=== PATIENT | male | born 1955 | race Caucasian/White ===

== ENCOUNTER 2017-07-08 15:14 | Outpatient (CLI) | payer OTHER ==
[2017-07-08 18:51] LABS: BUN - BLOOD UREA NITROGEN 22 mg/dL (6-20); CALCIUM 8.7 mg/dL (8.5-10.3); CARBON DIOXIDE - CO2 26 mmol/L (21-32); CHLORIDE 103 mmol/L (101-111); CHOLESTEROL 233 mg/dL; CREATININE 1.3 mg/dL (0.6-1.2); GFR - MDRD 57 (>89); GLUCOSE 121 mg/dL (70-100); HDL CHOLESTEROL 39 mg/dL; LDL/HDL RATIO 3.7 (<3.6); POTASSIUM 3.8 mmol/L (3.5-5.0); SODIUM 136 mmol/L (135-145); TRIGLYCERIDES 249 mg/dL; VLDL CHOLESTEROL 50 mg/dL
== END 2017-07-08 15:15 | disposition home or self-care (01) ==
LOC: LAB.F 15:14
PROVIDERS: ATTEND Internal Medicine
DX: I10 Essential (primary) hypertension (principal)
CPT/HCPCS: 36415; 80048; 80061

== ENCOUNTER 2018-05-21 07:37 | Outpatient (CLI) | payer MEDICAID ==
[2018-05-21 11:23] LABS: BUN - BLOOD UREA NITROGEN 18 mg/dL (6-20); CALCIUM 8.8 mg/dL (8.5-10.3); CARBON DIOXIDE - CO2 26 mmol/L (21-32); CHLORIDE 102 mmol/L (101-111); CHOL/HDL RATIO 7.1 (<5.0); CHOLESTEROL 235 mg/dL; CREATININE 1.1 mg/dL (0.6-1.2); GFR - MDRD 68 (>89); GLUCOSE 99 mg/dL (70-100); HDL CHOLESTEROL 33 mg/dL; LDL CHOLESTEROL,CALCULATED 177 mg/dL; LDL/HDL RATIO 5.4 (<3.6); SODIUM 137 mmol/L (135-145); VLDL CHOLESTEROL 25 mg/dL
== END 2018-05-21 07:38 | disposition home or self-care (01) ==
LOC: LAB.F 07:37
PROVIDERS: ATTEND Internal Medicine
DX: I10 Essential (primary) hypertension (principal); E78.5 Hyperlipidemia, unspecified
CPT/HCPCS: 36415; 80048; 80061; 83721

== ENCOUNTER 2018-06-15 08:34 | Day surgery (SDC) | payer MEDICAID ==
[2018-06-15] MEDS ORDERED: ceFAZolin 2 GM/50 ML 2 GM/50 ML BAG IV ONE (08:53)
[2018-06-15] MEDS ORDERED: LACTATED RINGERS 1,000 ML IV ONE ×2 (09:25→12:31)
--- NOTE | 2018-06-15 09:38 | ANESTHESIA ---
Pre-Anesthesia VS, & Labs - Diagnosis left inguinal hernia - Procedure left open inguinal hernia repair with mesh Vital Signs: Temp Pulse Resp BP Pulse Ox 36.8 C 84 16 145/97 H 97 06/15/18 08:50 06/15/18 08:50 06/15/18 08:50 06/15/18 08:50 06/15/18 08:50 Height 5 ft 8 in Weight (kg) 78.6 kg - NPO >8 hours - Lab Results Lab results reviewed: Yes Home Medications and Allergies Home Medications: Ambulatory Orders Medication Instructions Recorded Confirmed Simvastatin 20 mg PO QPM 06/12/18 06/15/18 amLODIPine [Norvasc] 10 mg PO DAILY 06/12/18 06/15/18 Simvastatin 20 mg PO QPM 06/12/18 amLODIPine [Norvasc] 10 mg PO DAILY 06/12/18 Allergies/Adverse Reactions: Allergies Allergy/AdvReac Type Severity Reaction Status Date / Time crab Allergy Anaphylaxis Verified 06/12/18 12:38 morphine AdvReac Nausea Verified 06/12/18 12:38 Anes History & Medical History - Anesthetic History Anesthesia Complications: reports: No previous complications Family history of Anesthesia Complications: Denies Family history of Malignant Hyperthermia: Denies - Medical History Cardiovascular: reports: Hypertension, High cholesterol Pulmonary: reports: None Gastrointestinal: reports: GERD Urinary: reports: None Musculoskeletal: reports: Gout Endocrine/Autoimmune: reports: None Skin: reports: None - Surgical History General: Appendectomy Eyes Ears Nose Throat (EENT): Tonsil/Adenoidectomy Exam Dental: Other (caps) Mouth Openin Fingerbreadth Neck Mobility: Normal Mallampati classification: II Thyromental Distance: greater than 6 cm Respiratory: Lungs clear, Normal breath sounds, No respiratory distress, No accessory muscle use Cardiovascular: Regular rate, Normal S1, Normal S2, No murmurs Mental/Cognitive Status: Alert/Oriented X3, Normal for patient Cognitive Status: Within normal limits Plan Anesthesia Type: General Consent for Procedure(s) Verified and Reviewed: Yes Code Status: Attempt Resuscitation ASA classification: 2-Mild systemic disease Is this case an emergency?: No
[2018-06-15] MEDS ORDERED: BUPIVACAINE 0.5%-EPI 1:200000 PF 30 ML VIAL ONE (09:52)
[2018-06-15] MEDS ORDERED: LIDOCAINE 1% 50 ML MDV ONE (09:52)
[2018-06-15] MEDS ORDERED: ceFAZolin 1 GM VIAL ONE (09:54)
[2018-06-15] MEDS ORDERED: LIDOCAINE-MPF 2% 5 ML VIAL IM ONE (11:15)
[2018-06-15] MEDS ORDERED: KETOROLAC 30 MG/ML VIAL IVP ONE (11:15)
[2018-06-15] MEDS ORDERED: PROPOFOL 200 MG/20 ML VIAL IVP ONE (11:15)
[2018-06-15] MEDS ORDERED: fentaNYL 100 MCG/2 ML VIAL IVP ONE (11:15)
[2018-06-15] MEDS ORDERED: DEXAMETHASONE 4 MG/ML VIAL IVP ONE (11:15)
[2018-06-15] MEDS ORDERED: ONDANSETRON 4 MG/2 ML VIAL IVP ONE (11:15)
[2018-06-15] MEDS ORDERED: MIDAZOLAM 2 MG/2 ML VIAL IVP ONE (11:15)
[2018-06-15] MEDS ORDERED: BUPIVACAINE 0.5%-EPI 1:200000 PF 30 ML VIAL SUBQ ONE ×2 (11:41)
[2018-06-15] MEDS ORDERED: oxyCODONE 5 MG TABLET PO PRN (12:41)
[2018-06-15] MEDS ORDERED: ONDANSETRON 4 MG/2 ML VIAL IVP PRN (12:41)
[2018-06-15] MEDS ORDERED: ACETAMINOPHEN 325 MG TABLET PO PRN (12:41)
[2018-06-15] MEDS ORDERED: IBUPROFEN 600 MG TABLET PO PRN (12:41)
[2018-06-15] MEDS ORDERED: oxyCODONE 5 MG TABLET ONE (13:23)
[2018-06-15 14:16] VITALS: BP 132/79
--- NOTE | 2018-06-15 22:43 | OPERATIVE REPORT ---
DATE OF SERVICE: 06/15/2018 Physician: Nirav Arteaga MD PREOPERATIVE DIAGNOSIS: Symptomatic left inguinal hernia. POSTOPERATIVE DIAGNOSIS: Symptomatic left inguinal hernia, direct. PROCEDURE PERFORMED: Open repair of same with Bard soft tissue patch. ANESTHESIA: General laryngeal mask anesthesia plus local by Osman Wellington CRNA. SURGEON: Nirav Arteaga MD. ESTIMATED BLOOD LOSS: Minimal. COMPLICATIONS: None. DRAINS: None. FINDINGS: A small to moderate sized direct left inguinal hernia was noted. There was no evidence of indirect or femoral hernia. INDICATIONS FOR PROCEDURE: Patient is a 62-year-old gentleman with a recent onset of a painful reducible left groin bulge. Examination revealed a left inguinal hernia. He was advised to undergo repair. TECHNIQUE: After informed consent, the patient was taken to the operating room and placed under general anesthesia. Preoperative preparation included application of sequential calf compression boots and administration of 2 grams cefazolin intravenously within an hour of the incision, his left groin had been clipped and was prepared with iodoform solution, following which a left groin block was instituted using a 50:50 combination of 0.5% Marcaine plain and 1% lidocaine with epinephrine. A total of 50 mL of the mixture was used. The patient's left groin was re-prepared with ChloraPrep solution and draped in the usual sterile fashion. A transverse incision was made in the skin lines of the left groin beginning above the pubic tubercle and extending laterally approximately 4-5 cm in length. Hemostasis achieved with electrocautery and 2-0 Vicryl tie. Incision was carried down through subcutaneous tissues until the external oblique aponeurosis was identified and was incised along the lines of its fibers, in such a manner as to open the internal ring and exposed the internal ring. The spermatic cord mobilized and encircled with a Christiano drain. The lingual nerve was identified and was divided to avoid neuralgia from entrapment or traction injury. The spermatic cord was dissected and no indirect sac was identified. A direct sac was identified and dissected free from surrounding cord structures. The direct sac was reduced and the defect of the inguinal floor reapproximated with two 3-0 silk sutures. Hemostasis was assured. The wound was irrigated with antibiotic solution containing a gram of cefazolin per liter, following which the Bard expanded polypropylene precut slotted inguinal patch was soaked in antibiotic solution and placed over the inguinal floor where it secured in place circumferentially with 3-0 Prolene sutures. Care was taken to avoid excessive tightening of the patch around the cord at the level of the internal ring. After hemostasis was assured and the wound was again irrigated with antibiotic solution. The wound closure was accomplished in layers with continuous 2-0 Vicryl to reapproximate the external oblique aponeurosis overlying the cord, followed by 3-0 Vicryl for the Atul fascia and 4-0 Monocryl subcuticular skin closure, followed by Dermabond. Anesthesia was terminated and patient transferred to the recovery room in satisfactory condition. Sponge and needle counts were correct x2. No drains were used. TD: 06/15/2018 12:54 SALUD
== END 2018-06-15 08:35 | disposition home or self-care (01) ==
LOC: SDS 08:34
PROVIDERS: ATTEND Internal Medicine Gastroenterology
PROC: 0YU60JZ Supplement Left Inguinal Region with Synthetic Substitute, Open Approach (ICD-10-PCS; principal; 2018-06-15 09:45)
DX: K40.90 Unilateral inguinal hernia, without obstruction or gangrene, not specified as recurrent (principal); R39.15 Urgency of urination; I10 Essential (primary) hypertension; E78.5 Hyperlipidemia, unspecified; Z79.899 Other long term (current) drug therapy; Z86.010 Personal history of colon polyps; Z83.79 Family history of other diseases of the digestive system; Z87.891 Personal history of nicotine dependence
CPT/HCPCS: 49505; A9270; C1781; J0690; J7120

== ENCOUNTER 2021-03-16 07:16 | Outpatient (CLI) | payer OTHER ==
[2021-03-16 14:42] LABS: BASOPHILS # (AUTO) 0.1 10^3/uL (0.0-0.1); BASOPHILS % (AUTO) 0.7 %; EOSINOPHILS # (AUTO) 0.3 10^3/uL (0.0-0.7); EOSINOPHILS % (AUTO) 3.8 %; HCT - HEMATOCRIT 44.1 % (42.0-52.0); HGB - HEMOGLOBIN 14.8 g/dL (14.0-18.0); LYMPHOCYTES # (AUTO) 2.3 10^3/uL (1.5-3.5); LYMPHOCYTES % (AUTO) 33.1 %; MEAN CORPUSCULAR HEMOGLOBIN 31.3 pg (27.0-31.0); MEAN CORPUSCULAR HGB CONC 33.6 g/dL (32.0-36.0); MEAN CORPUSCULAR VOLUME 93.2 fL (80.0-94.0); MONOCYTES # (AUTO) 0.6 10^3/uL (0.0-1.0); MONOCYTES % (AUTO) 9.3 %; NEUTROPHILS # (AUTO) 3.6 10^3/uL (1.5-6.6); NEUTROPHILS % (AUTO) 52.4 %; PLT - PLATELET COUNT 319 10^3/uL (130-450); RED BLOOD COUNT 4.73 10^6/uL (4.70-6.10); WHITE BLOOD COUNT 6.8 x10^3/uL (4.8-10.8)
[2021-03-16 15:51] LABS: ALBUMIN 4.4 g/dL (3.2-5.5); ALBUMIN/GLOBULIN RATIO 1.6 (1.0-2.2); ALKALINE PHOSPHATASE 64 IU/L (42-121); ALT ALANINE AMINOTRANSFERASE 83 IU/L (10-60); AST ASPARTATE AMINOTRANSFERASE 58 IU/L (10-42); BILIRUBIN,TOTAL 0.9 mg/dL (0.2-1.0); BUN - BLOOD UREA NITROGEN 18 mg/dL (6-20); CALCIUM 9.3 mg/dL (8.5-10.3); CARBON DIOXIDE - CO2 24 mmol/L (21-32); CHLORIDE 103 mmol/L (101-111); CHOL/HDL RATIO 6.9 (<5.0); CHOLESTEROL 277 mg/dL; GFR - MDRD 75 (>89); GLUCOSE 100 mg/dL (70-100); HDL CHOLESTEROL 40 mg/dL; LDL CHOLESTEROL,CALCULATED 211 mg/dL; LDL/HDL RATIO 5.3 (<3.6); SODIUM 139 mmol/L (135-145); TOTAL PROTEIN 7.1 g/dL (6.7-8.2); TRIGLYCERIDES 132 mg/dL; VLDL CHOLESTEROL 26 mg/dL
== END 2021-03-16 07:17 | disposition home or self-care (01) ==
LOC: LAB.S 07:16
PROVIDERS: ATTEND Internal Medicine
DX: I10 Essential (primary) hypertension (principal); Z12.5 Encounter for screening for malignant neoplasm of prostate
CPT/HCPCS: 36415; 80053; 80061; 83721; 84153; 85025

== ENCOUNTER 2021-07-17 11:11 | Day surgery (SDC) | payer OTHER ==
[2021-07-17] MEDS ORDERED: LACTATED RINGERS 1,000 ML IV ONE ×2 (11:31→13:08)
--- NOTE | 2021-07-17 12:11 | ANESTHESIA ---
Pre-Anesthesia VS, & Labs - Diagnosis history of polyps - Procedure colonoscopy Vital Signs: Temp Pulse Resp BP Pulse Ox 36.8 C 82 16 147/88 H 99 07/17/21 11:39 07/17/21 11:39 07/17/21 11:39 07/17/21 11:39 07/17/21 11:39 Height: 5 ft 9 in Weight (kg): 84.2 kg Body Mass Index: 27.3 BMI Classification: Overweight - NPO >8 hours Home Medications and Allergies amLODIPine [Norvasc] 10 mg PO DAILY 06/12/18 Allergies/Adverse Reactions: Allergies Allergy/AdvReac Type Severity Reaction Status Date / Time crab Allergy Anaphylaxis Verified 06/12/18 12:38 morphine AdvReac Nausea Verified 06/12/18 12:38 Anes History & Medical History - Anesthetic History Anesthesia Complications: reports: No previous complications - Medical History Cardiovascular: reports: Hypertension, High cholesterol Pulmonary: reports: None Gastrointestinal: reports: GERD, Colon polyps Urinary: reports: None Musculoskeletal: reports: Gout Endocrine/Autoimmune: reports: None Skin: reports: None - Surgical History General: reports: Appendectomy, Other Eyes Ears Nose Throat (EENT): reports: Tonsil/Adenoidectomy Exam General: Alert Dental: WNL Mouth Opening: Greater than 4 Fingerbreadths Mallampati classification: II Thyromental Distance: greater than 6 cm Respiratory: Lungs clear Cardiovascular: Regular rate Plan Anesthesia Type: Total IV Consent for Procedure(s) Verified and Reviewed: Yes Code Status: Attempt Resuscitation ASA classification: 2-Mild systemic disease Is this case an emergency?: No
[2021-07-17] MEDS ORDERED: LIDOCAINE-MPF 2% 5 ML VIAL ONE (12:32)
[2021-07-17] MEDS ORDERED: PROPOFOL 500 MG/50 ML 500 MG/50 ML VIAL ONE (12:32)
[2021-07-17 13:30] VITALS: BP 126/87
--- NOTE | 2021-07-17 13:40 | ANESTHESIA POST OP EVALUATION ---
Anesthesia Post Eval - Post Anesthesia Eval Vitals: Last Vital Signs Temp 36.7 C 07/17/21 13:28 Pulse 71 07/17/21 13:28 Resp 16 07/17/21 13:28 BP 126/87 H 07/17/21 13:28 Pulse Ox 99 07/17/21 13:28 CV Function Including HR & BP: Stable Pain Control: Satisfactory Nausea & Vomiting: Negative Mental Status: Baseline Respiratory Status: Airway Patent Hydration Status: Satisfactory Anesthesia Complications: None
== END 2021-07-17 11:12 | disposition home or self-care (01) ==
LOC: SDS 11:11
PROVIDERS: ATTEND Surgery
PROC: 0DBN8ZZ Excision of Sigmoid Colon, Via Natural or Artificial Opening Endoscopic (ICD-10-PCS; 2021-07-17)
PROC: 0DBM8ZZ Excision of Descending Colon, Via Natural or Artificial Opening Endoscopic (ICD-10-PCS; principal; 2021-07-17 12:15)
DX: Z12.11 Encounter for screening for malignant neoplasm of colon (principal); D12.4 Benign neoplasm of descending colon; D12.5 Benign neoplasm of sigmoid colon; K57.30 Diverticulosis of large intestine without perforation or abscess without bleeding; K64.8 Other hemorrhoids; K21.9 Gastro-esophageal reflux disease without esophagitis; E78.5 Hyperlipidemia, unspecified; I10 Essential (primary) hypertension
CPT/HCPCS: 45385; J7120

== ENCOUNTER 2024-04-24 14:18 | Emergency (ER) | payer OTHER, MEDICARE ==
[2024-04-24 14:37] VITALS: O2SAT 98
--- NOTE | 2024-04-24 14:46 | ED Physician Documentation ---
PD HPI CHEST PAIN - Stated complaint Stated Complaint: CHEST PRESSURE/TINGLING ARMS - Chief complaint Chief Complaint: Cardiac - History obtained from History obtained from: Patient - History of Present Illness Timing - onset: Yesterday Timing - onset during: Emotional event Timing - details: Gradual onset (he is here for of his mother yesterday, and he is trying to "be strong and not show sadness" so not to upset his father.), Still present, Waxing and waning Quality: Pressure, Tightness, Aching Location: Left chest Radiation: Left upper extremity, Right upper extremity Worsened by: No: Exertion, Inspiration Associated symptoms: No: Shortness of air, Nausea, Feeling faint / dizzy Similar symptoms before: Has not had sx before Recently seen: Not recently seen PD PAST MEDICAL HISTORY - Past Medical History Past Medical History: Yes Cardiovascular: Hypertension, High cholesterol Respiratory: None Endocrine/Autoimmune: None GI: GERD, Colon polyps : None HEENT: None Psych: None Musculoskeletal: Gout Derm: None - Past Surgical History Past Surgical History: Yes General: Appendectomy, Other HEENT: Tonsil/Adenoidectomy - Present Medications Home Medications: Ambulatory Orders Medication Instructions Recorded Confirmed amLODIPine [Norvasc] 10 mg PO DAILY 06/12/18 07/16/21 - Allergies Allergies/Adverse Reactions: Allergies Allergy/AdvReac Type Severity Reaction Status Date / Time crab Allergy Anaphylaxis Verified 04/24/24 14:24 morphine AdvReac Nausea Verified 04/24/24 14:24 - Social History Does the pt smoke?: No Smoking Status: Never smoker Does the pt drink ETOH?: No Does the pt have substance abuse?: No - Immunizations Immunizations are current?: Yes Results - Vitals Vitals: Oxygen O2 Source Room air - EKG (time done) 14:32 EKG releavant findings:: EKG personally interpreted by author of this note. Relevant findings are: Rate: Rate (enter#) (1) Rhythm: NSR [place]: Normal Intervals: Normal [place] QRS: Normal Ischemia: Normal ST segments. No: ST elevation c/w ischemia, ST depression - Labs Labs: Laboratory Tests 04/24/24 04/24/24 14:43 14:43 WBC 9.4 RBC 5.13 Hgb 15.4 Hct 44.0 MCV 85.8 MCH 30.0 MCHC 35.0 RDW 12.5 Plt Count 374 MPV 8.3 Neut # (Auto) 7.2 H Lymph # (Auto) 1.6 [place] # (Auto) 0.5 Eos # (Auto) 0.1 Baso # (Auto) 0.0 Absolute Nucleated RBC 0.00 Nucleated RBC % 0.0 Sodium 137 Potassium 3.5 Chloride 104 Carbon Dioxide 24 Anion Gap 9.0 BUN 17 Creatinine 1.1 Estimated GFR (MDRD) 67 L Glucose 178 H Calcium 9.4 Total Bilirubin 0.6 AST 22 ALT 21 Alkaline Phosphatase 108 Troponin I High Sens 4.8 Total Protein 7.2 Albumin 4.2 Globulin 3.0 Albumin/Globulin Ratio 1.4 Lipase 41 - Rads (name of study) chest xray Relevant Findings:: Prelim report reviewed (no acute process), EMP independent interpretation of test PD Medical Decision Making - ED course Complexity details: reviewed results (negative trop and other labs good as well. nonfating glucose at 178. Had had lunch recently. ), considered differential (chest pain and pressure with risk factors HTN, male. Will get ECG CXR and particularly tropoinin. Has had symptoms for several hours now, since AM, so negative trop should be conclusive of heart injury. ), d/w patient Departure - Departure Disposition: 01 Home, Self Care Clinical Impression: Chest pain Qualifiers: Chest pain type: unspecified Qualified Code(s): R07.9 - Chest pain, unspecified Condition: Stable Record reviewed to determine appropriate education?: Yes Instructions: ED Strain Chest Wall Comments: Your EKG is normal without any signs of ischemia/heart attack. Your chest x-ray is clear without any signs of enlargement of the heart or lung abnormalities. No signs of congestive failure. Your blood test called troponin is normal which with your symptoms since yesterday, it is conclusive of no heart muscle injury/heart attack. The pattern of the pain and character does not sound like an aginal pattern (exertional, better with rest, etc). No signs of heart or lung cause for your pain. With that, I would be inclined to see a muscular type pain and you could use some anti-inflammatory such as ibuprofen or naproxen 2-3 times daily to help with the discomfort. Otherwise activity as tolerated. I wish you and your family well and with the of your mother. I know this is a stressful time for you all. Some of your symptoms could derived from the stress of this. Sharing with your family and father and allowing yourself to grieve will be "stronger" than holding it in and being silent. Use some anti-inflammatory such as ibuprofen or naproxen 2-3 times daily over the next several days to week for the discomfort. Follow-up with your primary if not improving well or return to the ER if you have increased symptoms are associated with trouble breathing or becomes an exertional pattern or any other concerning symptoms. Forms: PCP List Discharge Date/Time: 04/24/24 16:23
[2024-04-24 14:48] LABS: BASOPHILS % (AUTO) 0.3 %; EOSINOPHILS # (AUTO) 0.1 10^3/uL (0.0-0.7); EOSINOPHILS % (AUTO) 0.9 %; HGB - HEMOGLOBIN 15.4 g/dL (14.0-18.0); LYMPHOCYTES # (AUTO) 1.6 10^3/uL (1.5-3.5); LYMPHOCYTES % (AUTO) 17.2 %; MEAN CORPUSCULAR VOLUME 85.8 fL (80.0-94.0); MEAN PLATELET VOLUME 8.3 fL (7.4-11.4); MONOCYTES # (AUTO) 0.5 10^3/uL (0.0-1.0); MONOCYTES % (AUTO) 5.2 %; NEUTROPHILS # (AUTO) 7.2 10^3/uL (1.5-6.6); NEUTROPHILS % (AUTO) 76.2 %; PLT - PLATELET COUNT 374 10^3/uL (130-450); RED BLOOD COUNT 5.13 10^6/uL (4.70-6.10); RED CELL DISTRIBUTION WIDTH 12.5 % (12.0-15.0); WHITE BLOOD COUNT 9.4 x10^3/uL (4.8-10.8)
[2024-04-24 15:09] LABS: TROPONIN I HIGH SENSITIVITY 4.8 ng/L (2.3-19.7)
[2024-04-24 15:22] LABS: ALBUMIN 4.2 g/dL (3.2-5.5); ALBUMIN/GLOBULIN RATIO 1.4 (1.0-2.2); BILIRUBIN,TOTAL 0.6 mg/dL (0.2-1.0); CALCIUM 9.4 mg/dL (8.5-10.3); CREATININE 1.1 mg/dL (0.6-1.3); POTASSIUM 3.5 mmol/L (3.5-4.5); TOTAL PROTEIN 7.2 g/dL (6.4-8.9)
[2024-04-24] MEDS: IBUPROFEN 600 MG TABLET PO STA (15:32)
[2024-04-24 15:51] VITALS: BP 137/80
--- NOTE | 2024-04-24 16:30 | XRAY Report ---
PROCEDURE: Chest 1V INDICATIONS: Chest pain TECHNIQUE: One view of the chest was acquired. COMPARISON: None. FINDINGS: Surgical changes and devices: None. Lungs and pleura: No pleural effusions or pneumothorax. Lungs are hyperinflated but clear. Mediastinum: Mediastinal contours appear normal. Heart size is normal. Bones and chest wall: No suspicious bony lesions. Overlying soft tissues appear unremarkable. IMPRESSION: No acute cardiopulmonary process. Reviewed by: Sakina Rodriguez MD on 04/24/2024 3:28 PM AKDT Approved by: Sakina Rodriguez MD on 04/24/2024 3:28 PM AKDT Station ID: [id number]
== END 2024-04-24 16:23 | disposition home or self-care (01) ==
LOC: ED 14:18
DX: R07.9 Chest pain, unspecified (principal); I10 Essential (primary) hypertension; E78.00 Pure hypercholesterolemia, unspecified; Z86.010 Personal history of colon polyps; M10.9 Gout, unspecified
CPT/HCPCS: 36415; 71045; 80053; 83690; 84484; 85025; 93005; 99283; 99284; A9270